=== PATIENT | male | born 1980 | race Caucasian/White ===

== ENCOUNTER → 2017-04-22 18:00 | Outpatient (CLI) | payer BC, SELFPAY ==
--- NOTE | 2017-04-22 17:21 | CT_ITS ---
CT Soft Tissue Neck W/ Contrast INDICATION: SORE THROAT X 2 MONTHS COMPARISON: None TECHNIQUE: Axial CT imaging of the soft tissues of the neck with IV contrast. Coronal and sagittal reformatted images. Radiation dose optimization technique applied. 100 mL of Isovue-300 were given intravenously. FINDINGS: There is mild mucosal thickening in the ethmoid sinuses and maxillary sinuses. Ethmoid sinus and mastoid air cells are clear. There is minimal prominence of the adenoidal soft tissues and normal and symmetric appearance of the palatine tonsils. Parapharyngeal fat is clear. Epiglottis and aryepiglottic folds are normal and symmetric. Vocal cords are normal and symmetric. The thyroid gland, submandibular glands, and parotid glands are normal and symmetric. Muscles of mastication are unremarkable. Vascular structures are unremarkable. There is no evidence of abnormal mass or lymphadenopathy. The prevertebral soft tissue stripe is normal. CT/Soft Tissue Neck WITH Contrast IMPRESSION: Negative CT examination of the soft tissues of the neck. at 2120 Reported and signed by: Eva Wyman MD Electronically Signed: Eva Wyman MD at 20:19 EST Tel , Service support ,
== END ==
PROVIDERS: Family Provider Family Medicine; PCP Family Medicine; Visit Provider Otolaryngology
DX: R13.10 Dysphagia, unspecified (principal)
CPT/HCPCS: 70491; Q9967